=== PATIENT | female | born 1990 | race Caucasian/White ===

== ENCOUNTER 2017-01-03 20:50 | Emergency (ER) | payer OTHER ==
[~2017-01-03] VITALS: Ht 162.6 cm; Wt 56.7 kg
[2017-01-03] MEDS ORDERED: LEXA1TAB2 PO (21:08)
[2017-01-03 22:49] VITALS: BP 116/72
== END 2017-01-03 22:50 | disposition home or self-care (01) ==
LOC: M ED 22:34
DX: S61.215A Laceration without foreign body of left ring finger without damage to nail, initial encounter (principal); W26.0XXA Contact with knife, initial encounter; Y92.018 Other place in single-family (private) house as the place of occurrence of the external cause; Y93.89 Activity, other specified; Y99.8 Other external cause status